=== PATIENT | male | born 1965 | race Caucasian/White ===

== ENCOUNTER 2019-10-23 01:07 | Emergency (ER) | payer MEDICAID ==
[~2019-10-23] VITALS: Ht 172.7 cm; Wt 60.3 kg
[2019-10-23 01:21] VITALS: Ht 172.7 cm; Wt 60.3 kg
[2019-10-23 03:13] VITALS: BP 145/81
== END 2019-10-23 03:13 | disposition home or self-care (01) ==
LOC: ED 01:07
DX: R04.0 Epistaxis (principal)

== ENCOUNTER 2019-11-17 12:49 | Inpatient (IN) | payer MEDICAID ==
[~2019-11-17] VITALS: Ht 170.2 cm; Wt 62.6 kg
[2019-11-17 13:08] VITALS: Ht 170.2 cm; Wt 62.6 kg
[2019-11-17 14:19] LABS: PLATELET COUNT 69 x10^3mcL (130-400); RED CELL DISTRIBUTION WIDTH 15.8 % (11.5-14.5)
[2019-11-17 14:37] LABS: BAND NEUTROPHIL 2 % (0-10); BASOPHIL 0 % (0-2); MONOCYTE 2 % (0-7); SEGMENTED NEUTROPHILS 23 % (37-75)
[2019-11-17 14:41] LABS: PLATELET MORPHOLOGY PLATELETS DECREASED; rbc morphology (normal/abnorm) NORMAL (NORMAL)
[2019-11-17 14:49] LABS: CARBON DIOXIDE 29.7 mmol/L (21-32); CHLORIDE SERUM 107 mmol/L (98-107); CREATININE SERUM 0.5 mg/dL (0.7-1.3); GFR1 > 60 mL/min; GLUCOSE SERUM 98 mg/dL (74-106); POTASSIUM SERUM 3.3 mmol/L (3.5-5.1); SODIUM SERUM 148 mmol/L (136-145)
[2019-11-17 14:55] LABS: ALKALINE PHOSPHATASE 78 U/L (46-116); ALT/SGPT 70 U/L (16-63); AST/SGOT 151 U/L (15-37); BILIRUBIN TOTAL 0.3 mg/dL (0.20-1.00); LIPASE 628 IU/L (73-393); TOTAL PROTEIN, SERUM 6.7 g/dL (6.4-8.2)
[2019-11-17 15:25] LABS: ALBUMIN 3.2 g/dL (3.4-5.0)
[2019-11-17 16:03] LABS: UA SPECIFIC GRAVITY 1.015 (1.005-1.035); microscopic required? YES; urine erythrocyte TRACE (NEGATIVE)
[2019-11-17 16:24] LABS: AMPHETAMINE QUAL UR NONE DETECTED (See below)
[2019-11-17] MEDS ORDERED: LOSARTAN POTASS25 M1 PO (16:28)
[2019-11-17] MEDS ORDERED: ASPIR 8181 MG PO (16:28)
[2019-11-17 17:48] LABS: TOTAL IRON BINDING CAPACITY 257 ug/dL (250-450)
[2019-11-17 17:50] LABS: MAGNESIUM 1.7 mg/dL (1.8-2.4); PHOSPHOROUS 3.6 mg/dL (2.5-4.9)
[2019-11-17 17:52] LABS: CHOLESTEROL/HDL RATIO 2.4; IRON 34 ug/dL (65-170)
[2019-11-17 17:54] LABS: RED BLOOD CELLS 2.97 M/mm3 (4.52-5.90)
[2019-11-17 18:00] LABS: FREE T4 0.8 ng/dL (0.76-1.46); FREE THYROXINE INDEX 1.8 ug/dL (1.4-4.5); T4(THYROXINE) 5.4 ug/dL (4.7-13.3)
[2019-11-17 18:03] VITALS: BP 135/56
[2019-11-17 18:10] LABS: T3 TOTAL 0.85 ng/mL
[2019-11-17 19:01] VITALS: BP 142/76
[2019-11-17 21:00] VITALS: BP 149/83
[2019-11-18 06:04] VITALS: BP 141/76
[2019-11-18 06:48] LABS: CALCIUM 7.9 mg/dL (8.5-10.1); CARBON DIOXIDE 25.7 mmol/L (21-32); CHLORIDE SERUM 102 mmol/L (98-107); CREATININE SERUM 0.4 mg/dL (0.7-1.3); GFR1 > 60 mL/min; GLUCOSE SERUM 83 mg/dL (74-106); MAGNESIUM 1.4 mg/dL (1.8-2.4); PHOSPHOROUS 2.7 mg/dL (2.5-4.9); POTASSIUM SERUM 3.2 mmol/L (3.5-5.1); SODIUM SERUM 140 mmol/L (136-145)
[2019-11-18 07:51] LABS: PLATELET COUNT 61 x10^3mcL (130-400)
[2019-11-18 08:01] VITALS: BP 148/79
[2019-11-18 10:42] LABS: MONOCYTE 8 % (0-7); SEGMENTED NEUTROPHILS 60 % (37-75)
[2019-11-18 10:43] LABS: burr cell (echinocyte) 1+; rbc morphology (normal/abnorm) ABNORMAL (NORMAL)
[2019-11-18 16:58] VITALS: BP 155/88
[2019-11-18 19:30] VITALS: BP 151/82
[2019-11-19 05:00] VITALS: BP 147/94
[2019-11-19 05:10] LABS: ALPHA FETOPROTEIN TUMOR MARKER 3.8 ng/mL (0.0-8.3)
[2019-11-19 06:54] LABS: CALCIUM 8.4 mg/dL (8.5-10.1); CARBON DIOXIDE 26.6 mmol/L (21-32); CHLORIDE SERUM 98 mmol/L (98-107); CREATININE SERUM 0.5 mg/dL (0.7-1.3); GFR1 > 60 mL/min; GLUCOSE SERUM 114 mg/dL (74-106); MAGNESIUM 1.9 mg/dL (1.8-2.4); PHOSPHOROUS 2.7 mg/dL (2.5-4.9); POTASSIUM SERUM 3.5 mmol/L (3.5-5.1); SODIUM SERUM 134 mmol/L (136-145)
[2019-11-19 08:31] VITALS: BP 107/75
[2019-11-19 12:51] LABS: RED CELL DISTRIBUTION WIDTH 15.1 % (11.5-14.5)
[2019-11-19 12:52] LABS: PLATELET COUNT 75 x10^3mcL (130-400)
[2019-11-19 13:05] LABS: BAND NEUTROPHIL 8 % (0-10); MONOCYTE 2 % (0-7); SEGMENTED NEUTROPHILS 61 % (37-75)
[2019-11-19 13:06] LABS: PLATELET MORPHOLOGY PLATELETS DECREASED; rbc morphology (normal/abnorm) ABNORMAL (NORMAL)
[2019-11-19 14:24] VITALS: BP 101/69
[2019-11-19 20:45] VITALS: BP 120/60
[2019-11-20 05:30] VITALS: BP 148/79
[2019-11-20 07:44] VITALS: BP 148/79
[2019-11-20 08:01] VITALS: BP 138/76
[2019-11-20 12:06] VITALS: BP 143/80
[2019-11-20 16:16] VITALS: BP 123/71
[2019-11-20 20:32] VITALS: BP 136/84
[2019-11-21] VITALS (7 sets, daily range): BP systolic 105–135; BP diastolic 68–81
[2019-11-21 07:15] LABS: CALCIUM 8.8 mg/dL (8.5-10.1); CARBON DIOXIDE 27.4 mmol/L (21-32); CHLORIDE SERUM 105 mmol/L (98-107); CREATININE SERUM 0.7 mg/dL (0.7-1.3); GFR1 > 60 mL/min; GLUCOSE SERUM 101 mg/dL (74-106); POTASSIUM SERUM 3.3 mmol/L (3.5-5.1); SODIUM SERUM 143 mmol/L (136-145)
[2019-11-21 09:54] LABS: PLATELET COUNT 96 x10^3mcL (130-400); RED CELL DISTRIBUTION WIDTH 14.8 % (11.5-14.5)
[2019-11-21 10:21] LABS: BAND NEUTROPHIL 0 % (0-10); BASOPHIL 1 % (0-2); MONOCYTE 31 % (0-7); SEGMENTED NEUTROPHILS 29 % (37-75)
[2019-11-21 10:22] LABS: PLATELET MORPHOLOGY PLATELETS NORMAL; rbc morphology (normal/abnorm) ABNORMAL (NORMAL); target cell (codocyte) 1+
[2019-11-22 06:03] VITALS: BP 131/79
[2019-11-22 07:47] LABS: PLATELET COUNT 131 x10^3mcL (130-400)
[2019-11-22 07:59] VITALS: BP 141/84
[2019-11-22 08:04] LABS: CALCIUM 8.8 mg/dL (8.5-10.1); CARBON DIOXIDE 26.1 mmol/L (21-32); CHLORIDE SERUM 102 mmol/L (98-107); CREATININE SERUM 0.6 mg/dL (0.7-1.3); GFR1 > 60 mL/min; GLUCOSE SERUM 88 mg/dL (74-106); MAGNESIUM 1.6 mg/dL (1.8-2.4); POTASSIUM SERUM 3.7 mmol/L (3.5-5.1); SODIUM SERUM 136 mmol/L (136-145)
[2019-11-22 12:21] LABS: RED CELL DISTRIBUTION WIDTH 15.1 % (11.5-14.5)
[2019-11-22 12:35] VITALS: BP 121/83
[2019-11-22 14:07] LABS: BAND NEUTROPHIL 2 % (0-10); BASOPHIL 1 % (0-2); MONOCYTE 20 % (0-7); SEGMENTED NEUTROPHILS 45 % (37-75)
[2019-11-22 15:00] LABS: rbc morphology (normal/abnorm) ABNORMAL (NORMAL)
[2019-11-22 15:05] LABS: PLATELET MORPHOLOGY PLATELETS NORMAL; tear drop cell (dacryocyte) 1+
[2019-11-22 17:11] VITALS: BP 126/74
[2019-11-22 21:50] VITALS: BP 113/53
[2019-11-23 05:37] VITALS: BP 131/75
[2019-11-23 06:31] LABS: CALCIUM 8.8 mg/dL (8.5-10.1); CARBON DIOXIDE 29.6 mmol/L (21-32); CHLORIDE SERUM 102 mmol/L (98-107); CREATININE SERUM 0.6 mg/dL (0.7-1.3); GFR1 > 60 mL/min; GLUCOSE SERUM 89 mg/dL (74-106); MAGNESIUM 1.8 mg/dL (1.8-2.4); SODIUM SERUM 136 mmol/L (136-145)
[2019-11-23 07:04] LABS: PLATELET COUNT 155 x10^3mcL (130-400)
[2019-11-23 08:20] VITALS: BP 129/79
[2019-11-23 12:36] LABS: BAND NEUTROPHIL 1 % (0-10); BASOPHIL 0 % (0-2); MONOCYTE 29 % (0-7); SEGMENTED NEUTROPHILS 53 % (37-75)
[2019-11-23 12:37] LABS: PLATELET MORPHOLOGY PLATELETS NORMAL; rbc morphology (normal/abnorm) ABNORMAL (NORMAL)
[2019-11-23 16:45] VITALS: BP 140/77
[2019-11-23 21:32] VITALS: BP 121/67
[2019-11-24 05:08] VITALS: BP 123/76
[2019-11-24 08:43] VITALS: BP 143/82
[2019-11-24 10:38] LABS: CALCIUM 9.1 mg/dL (8.5-10.1); CARBON DIOXIDE 30.9 mmol/L (21-32); CHLORIDE SERUM 101 mmol/L (98-107); CREATININE SERUM 0.6 mg/dL (0.7-1.3); GFR1 > 60 mL/min; GLUCOSE SERUM 117 mg/dL (74-106); POTASSIUM SERUM 3.8 mmol/L (3.5-5.1); SODIUM SERUM 138 mmol/L (136-145)
[2019-11-24 10:54] VITALS: BP 143/82
[2019-11-24 13:03] VITALS: BP 121/77
[2019-11-24 16:45] VITALS: BP 122/74
[2019-11-24 20:57] VITALS: BP 113/70
[2019-11-25 06:01] VITALS: BP 122/74
[2019-11-25 06:42] LABS: CALCIUM 8.6 mg/dL (8.5-10.1); CARBON DIOXIDE 31.3 mmol/L (21-32); CHLORIDE SERUM 101 mmol/L (98-107); CREATININE SERUM 0.7 mg/dL (0.7-1.3); GFR1 > 60 mL/min; GLUCOSE SERUM 85 mg/dL (74-106); MAGNESIUM 1.8 mg/dL (1.8-2.4); SODIUM SERUM 138 mmol/L (136-145)
[2019-11-25 07:25] LABS: PLATELET COUNT 223 x10^3mcL (130-400)
[2019-11-25 07:26] LABS: RED CELL DISTRIBUTION WIDTH 15.1 % (11.5-14.5)
[2019-11-25 09:03] VITALS: BP 116/73
[2019-11-25 11:57] VITALS: BP 135/81
[2019-11-25 12:31] LABS: SEGMENTED NEUTROPHILS 40 % (37-75)
[2019-11-25 12:32] LABS: BAND NEUTROPHIL 1 % (0-10); MONOCYTE 26 % (0-7); rbc morphology (normal/abnorm) ABNORMAL (NORMAL)
[2019-11-25 12:33] LABS: PLATELET MORPHOLOGY PLATELETS NORMAL; burr cell (echinocyte) 1+
[2019-11-25 16:13] VITALS: BP 102/75
[2019-11-25 21:01] VITALS: BP 127/84
[2019-11-26 05:58] VITALS: BP 119/67
[2019-11-26 06:59] LABS: BASOPHIL % 1.6 % (0-2); PLATELET COUNT 286 x10^3mcL (130-400)
[2019-11-26 07:19] LABS: RED CELL DISTRIBUTION WIDTH 14.7 % (11.5-14.5)
[2019-11-26 07:24] LABS: CALCIUM 8.7 mg/dL (8.5-10.1); CARBON DIOXIDE 29.2 mmol/L (21-32); CHLORIDE SERUM 101 mmol/L (98-107); CREATININE SERUM 0.6 mg/dL (0.7-1.3); GFR1 > 60 mL/min; GLUCOSE SERUM 82 mg/dL (74-106); SODIUM SERUM 138 mmol/L (136-145)
[2019-11-26] MEDS ORDERED: [UNRECOGNIZED DRUG - CODE] TD (08:23)
[2019-11-26] MEDS ORDERED: FER300 PO (08:23)
[2019-11-26] MEDS ORDERED: LAC30L PO (08:24)
[2019-11-26] MEDS ORDERED: OSCD PO (08:24)
[2019-11-26] MEDS ORDERED: MAG PO (08:25)
[2019-11-26] MEDS ORDERED: PRI20 PO (08:26)
[2019-11-26] MEDS ORDERED: THI100 PO (08:26)
[2019-11-26] MEDS ORDERED: FOL1 PO (08:26)
[2019-11-26] MEDS ORDERED: LIB25 PO (08:27)
[2019-11-26 09:18] VITALS: BP 127/73
[2019-11-26 10:54] VITALS: BP 127/73
== END 2019-11-26 11:23 | disposition home health service (06) | DRG 241 ==
LOC: ED 12:49 → DU 16:25 → MU 11-25 13:50
PROVIDERS: Emergency Medicine; Family Medicine; Internal Medicine Gastroenterology; ADMIT Internal Medicine; ATTEND Internal Medicine
PROC: 0DB68ZX Excision of Stomach, Via Natural or Artificial Opening Endoscopic, Diagnostic (ICD-10-PCS; principal; 2019-11-18 09:30)
PROC: 0DJD8ZZ Inspection of Lower Intestinal Tract, Via Natural or Artificial Opening Endoscopic (ICD-10-PCS; 2019-11-21)
DX: K29.70 Gastritis, unspecified, without bleeding (principal); D61.818 Other pancytopenia; K85.90 Acute pancreatitis without necrosis or infection, unspecified; K22.11 Ulcer of esophagus with bleeding; F10.239 Alcohol dependence with withdrawal, unspecified; E44.1 Mild protein-calorie malnutrition; E83.42 Hypomagnesemia; E87.0 Hyperosmolality and hypernatremia; N39.0 Urinary tract infection, site not specified; E86.0 Dehydration; F33.9 Major depressive disorder, recurrent, unspecified; K64.8 Other hemorrhoids; Z11.59 Encounter for screening for other viral diseases; J45.909 Unspecified asthma, uncomplicated; Z79.82 Long term (current) use of aspirin; Z79.899 Other long term (current) drug therapy; E83.51 Hypocalcemia; E87.6 Hypokalemia; Z68.20 Body mass index [BMI] 20.0-20.9, adult; Y90.9 Presence of alcohol in blood, level not specified
CPT/HCPCS: 43235; 45378; 82962; 83880; 84439; 94150; 97116-GP; 97530-GP; 97535-GP; C9113; G0378; G0480; J1200; J1610; J2060; J2250; J2310; J3010; J3411; J3475; J3480; J3490; J7030; J7040; J7050; Q0092; Q9966; Q9967; U0003-CS

== ENCOUNTER 2020-01-28 22:18 | Emergency (ER) | payer MEDICAID ==
[~2020-01-28] VITALS: Ht 170.2 cm; Wt 58.5 kg
[~2020-01-28 22:18] MED LIST: ASPIR 8181 MG PO; FER300 PO; FOL1 PO; LAC30L PO; LIB25 PO; LOSARTAN POTASS25 M1 PO; MAG PO; OSCD PO; PRI20 PO; THI100 PO; [UNRECOGNIZED DRUG - CODE] TD
[2020-01-28 22:30] VITALS: Ht 170.2 cm; Wt 58.5 kg
[2020-01-28 22:54] LABS: BASOPHIL % 0.9 % (0-2); PLATELET COUNT 264 x10^3mcL (130-400)
[2020-01-28 23:03] LABS: CALCIUM 8.4 mg/dL (8.5-10.1); CARBON DIOXIDE 28.2 mmol/L (21-32); CHLORIDE SERUM 109 mmol/L (98-107); CREATININE SERUM 0.7 mg/dL (0.7-1.3); GFR1 > 60 mL/min; GLUCOSE SERUM 96 mg/dL (74-106); POTASSIUM SERUM 3.3 mmol/L (3.5-5.1); SODIUM SERUM 146 mmol/L (136-145)
[2020-01-28 23:10] LABS: ALBUMIN 3.2 g/dL (3.4-5.0); ALKALINE PHOSPHATASE 47 U/L (46-116); ALT/SGPT 26 U/L (16-63); AST/SGOT 39 U/L (15-37); BILIRUBIN TOTAL 0.19 mg/dL (0.20-1.00); TOTAL PROTEIN, SERUM 6.6 g/dL (6.4-8.2)
[2020-01-29 12:42] LABS: AMPHETAMINE QUAL UR NONE DETECTED (See below)
[2020-01-30 01:30] VITALS: BP 120/66
== END 2020-01-30 01:30 ==
LOC: ED 22:18
PROVIDERS: Emergency Medicine
DX: T42.4X2A Poisoning by benzodiazepines, intentional self-harm, initial encounter (principal); J45.909 Unspecified asthma, uncomplicated; I10 Essential (primary) hypertension; Y92.89 Other specified places as the place of occurrence of the external cause; Z20.828 Contact with and (suspected) exposure to other viral communicable diseases
CPT/HCPCS: G0480; U0003-CS